=== PATIENT | female | born 2000 | race Caucasian/White ===

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

== ENCOUNTER 2020-05-20 17:22 | Emergency (ER) | payer OTHER ==
[~2020-05-20] VITALS: Ht 160 cm; Wt 62.1 kg
[~2020-05-20 17:22] MED LIST changes: +Norco 5-325 Ta1 EACH PO
[2020-05-20] MEDS ORDERED: Percocet 5-3251 EACH PO (18:49)
== END 2020-05-20 19:13 | disposition home or self-care (01) ==
LOC: ER 17:22
DX: S42.032A Displaced fracture of lateral end of left clavicle, initial encounter for closed fracture (principal); S22.049A Unspecified fracture of fourth thoracic vertebra, initial encounter for closed fracture; V58.6XXA Passenger in pick-up truck or van injured in noncollision transport accident in traffic accident, initial encounter; Y92.410 Unspecified street and highway as the place of occurrence of the external cause
CPT/HCPCS: 71046; 93005; 93010; 96374; 96375; 99283-25; J1170; J2405

== ENCOUNTER 2020-06-16 08:05 | Emergency (ER) | payer OTHER ==
[~2020-06-16] VITALS: Ht 160 cm; Wt 64.4 kg
[~2020-06-16 08:05] MED LIST changes: +Percocet 5-3251 EACH PO
== END 2020-06-16 09:40 | disposition home or self-care (01) ==
LOC: ER 08:05
DX: S47.1XXA Crushing injury of right shoulder and upper arm, initial encounter (principal); G62.9 Polyneuropathy, unspecified; Z87.891 Personal history of nicotine dependence; W23.0XXA Caught, crushed, jammed, or pinched between moving objects, initial encounter
CPT/HCPCS: 29125; 73080; 99283-25

== ENCOUNTER 2020-12-23 15:31 | Emergency (ER) | payer OTHER ==
[~2020-12-23] VITALS: Ht 162.6 cm; Wt 68.0 kg
[2020-12-23] MEDS ORDERED: DEXT30SU PO (15:44)
[2020-12-23] MEDS ORDERED: Suphedrine PE10 MG PO (15:44)
== END 2020-12-23 16:01 | disposition home or self-care (01) ==
LOC: ER 15:31
DX: U07.1 COVID-19 (principal)
CPT/HCPCS: 99284

== ENCOUNTER 2020-12-31 16:04 | Emergency (ER) | payer OTHER ==
[~2020-12-31 16:04] MED LIST changes: +DEXT30SU PO; +Suphedrine PE10 MG PO
== END 2020-12-31 16:25 | disposition home or self-care (01) ==
LOC: ER 16:04
DX: U07.1 COVID-19 (principal)
CPT/HCPCS: 99282

== ENCOUNTER 2021-11-23 00:29 | Emergency (ER) | payer BC ==
[~2021-11-23] VITALS: Ht 160 cm; Wt 63.5 kg
[2021-11-23] MEDS ORDERED: BACITO TOP (04:55)
== END 2021-11-23 05:35 | disposition home or self-care (01) ==
LOC: ER 00:29
DX: S01.511A Laceration without foreign body of lip, initial encounter (principal); S00.81XA Abrasion of other part of head, initial encounter; Y04.0XXA Assault by unarmed brawl or fight, initial encounter; F17.210 Nicotine dependence, cigarettes, uncomplicated
CPT/HCPCS: 70450; 70486; 72125

== ENCOUNTER 2022-04-25 21:37 | Emergency (ER) | payer OTHER, BC ==
[~2022-04-25] VITALS: Ht 157.5 cm; Wt 69.0 kg
[~2022-04-25 21:37] MED LIST changes: +BACITO TOP
[2022-04-26] MEDS ORDERED: HYDR1TAB94 PO (00:16)
== END 2022-04-26 02:33 | disposition home or self-care (01) ==
LOC: ER 21:37
DX: S82.841A Displaced bimalleolar fracture of right lower leg, initial encounter for closed fracture (principal); S00.83XA Contusion of other part of head, initial encounter; S20.219A Contusion of unspecified front wall of thorax, initial encounter; F17.210 Nicotine dependence, cigarettes, uncomplicated; V89.2XXA Person injured in unspecified motor-vehicle accident, traffic, initial encounter; Z88.5 Allergy status to narcotic agent; Z88.8 Allergy status to other drugs, medicaments and biological substances
CPT/HCPCS: 71045; 72070; 73590; 73610; 73630; A9270; J3010

== ENCOUNTER 2022-04-29 10:56 | Emergency (ER) | payer OTHER ==
[~2022-04-29] VITALS: Ht 157.5 cm; Wt 71.7 kg
== END 2022-04-29 13:00 | disposition home or self-care (01) ==
LOC: ER 10:56
DX: S82.841D Displaced bimalleolar fracture of right lower leg, subsequent encounter for closed fracture with routine healing (principal); Z88.8 Allergy status to other drugs, medicaments and biological substances; Z88.5 Allergy status to narcotic agent; Z79.899 Other long term (current) drug therapy; V89.2XXD Person injured in unspecified motor-vehicle accident, traffic, subsequent encounter
CPT/HCPCS: 29515; 99282-25

== ENCOUNTER 2022-08-28 22:16 | Emergency (ER) | payer OTHER ==
[~2022-08-28] VITALS: Ht 157.5 cm; Wt 54.4 kg
[2022-08-28 22:40] LABS: BASOPHILS ABSOLUTE AUTO 0.03 K/mm3 (0.00-0.23); BASOPHILS PERCENT AUTO 0 % (0-2); EOSINOPHILS ABSOLUTE AUTO 0.06 K/mm3 (0.00-0.68); EOSINOPHILS PERCENT AUTO 1 % (0-6); Hematocrit 37.9 % (33.0-51.0); Hemoglobin 13.2 g/dL (11.5-16.0); IMMATURE GRAN ABSOLUTE AUTO 0.03 K/mm3 (0.00-0.10); IMMATURE GRAN PERCENT AUTO 0 % (0-1); LYMPHOCYTES ABSOLUTE AUTO 1.96 K/mm3 (0.84-5.20); LYMPHOCYTES PERCENT AUTO 21 % (21-46); MONOCYTES ABSOLUTE AUTO 0.39 K/mm3 (0.16-1.47); MONOCYTES PERCENT AUTO 4 % (4-13); Mean Corpuscular HGB 31.2 pg (26.0-34.0); Mean Corpuscular HGB Conc 34.8 g/dL (31.5-36.5); Mean Corpuscular Volume 90 fL (80-100); Mean Platelet Volume 8.7 fL (9.1-12.4); NEUTROPHILS PERCENT AUTO 74 % (41-73); Platelet Count 532 K/mm3 (150-400); RDW Coefficient Variation 11.7 % (11.7-14.2); RDW Standard Deviation 37.9 fL (35.1-46.3); Red Blood Cell Count 4.23 M/mm3 (3.80-5.20); White Blood Cell Count 9.57 K/mm3 (4.00-11.30)
[2022-08-28 22:53] LABS: International Normalized Ratio 0.97; Prothrombin Time Results 10.2 Sec (9.7-11.5)
[2022-08-28 23:00] LABS: Alanine Aminotransfer (ALT/SGP 19 U/L (12-78); Albumin/Globulin Ratio 1.1 (0.8-1.8); Alk Phos 107 U/L (50-136); Anion Gap 10 mmol/L (6-16); Aspartate Aminotrans (AST/SGOT 13 U/L (12-37); Beta HCG, Quantitative, Serum <1 mIU/mL (0-3); Bilirubin, Total 0.2 mg/dL (0.1-1.0); Blood Urea Nitrogen 15 mg/dL (8-24); Bun/Creatinine Ratio 23.4 (12.0-20.0); CO2, Blood 24 mmol/L (21-32); Calcium, Blood 8.4 mg/dL (8.5-10.1); Chloride, Blood 112 mmol/L (98-108); Creatinine, Blood 0.64 mg/dL (0.40-1.00); Ethanol (Alcohol), Blood, Med 233 mg/dL; Globulin, Blood 3.5 g/dL (2.2-4.0); Glomerular Filtration Rate 128 (60-); Glucose, Blood 95 mg/dL (70-99); Potassium, Blood 3.5 mmol/L (3.5-5.5); Sodium, Blood 146 mmol/L (136-145); Total Protein, Blood 7.5 g/dL (6.4-8.2)
[2022-08-28 23:02] VITALS: BP 136/90
[2022-08-29] MEDS ORDERED: IBUP800 PO (00:55)
[2022-08-29] MEDS ORDERED: ONDA4ODT MM (00:55)
[2022-08-29] MEDS ORDERED: Robaxin750 MG PO (00:55)
== END 2022-08-29 01:14 | disposition home or self-care (01) ==
LOC: ER 22:16
PROVIDERS: Student in an Organized Health Care Education/Training Program
DX: S06.0XAA Concussion with loss of consciousness status unknown, initial encounter (principal); S01.01XA Laceration without foreign body of scalp, initial encounter; S16.1XXA Strain of muscle, fascia and tendon at neck level, initial encounter; S13.4XXA Sprain of ligaments of cervical spine, initial encounter; S30.1XXA Contusion of abdominal wall, initial encounter; W17.89XA Other fall from one level to another, initial encounter; Z88.8 Allergy status to other drugs, medicaments and biological substances; Z88.5 Allergy status to narcotic agent; F17.290 Nicotine dependence, other tobacco product, uncomplicated
CPT/HCPCS: 12011; 70450; 71260; 72125; 73600; 74177; 80053; 84702; 85025; 85610; 90471; 93005; 93010; 96374-59; 96375-59; 99285-25; A9270; G0480; J1885; J3010; Q9967

== ENCOUNTER 2022-09-08 14:43 | Emergency (ER) | payer OTHER ==
[~2022-09-08] VITALS: Ht 157.5 cm; Wt 67.1 kg
[~2022-09-08 14:43] MED LIST changes: +IBUP800 PO; +ONDA4ODT MM; +Robaxin750 MG PO
[2022-09-08 15:08] VITALS: BP 131/84
== END 2022-09-08 15:29 | disposition home or self-care (01) ==
LOC: ER 14:43
DX: Z48.02 Encounter for removal of sutures (principal)

== ENCOUNTER 2022-12-05 23:41 | Emergency (ER) | payer OTHER ==
[~2022-12-05] VITALS: Ht 160 cm; Wt 74.8 kg
[2022-12-06 02:27] VITALS: BP 123/84
== END 2022-12-06 04:02 | disposition left against medical advice (07) ==
LOC: ER 23:41
DX: R07.81 Pleurodynia (principal); R06.02 Shortness of breath; Z88.5 Allergy status to narcotic agent; F17.290 Nicotine dependence, other tobacco product, uncomplicated; Z79.1 Long term (current) use of non-steroidal anti-inflammatories (NSAID)
CPT/HCPCS: 71046; 84484; 85379; 93005; 93010; 99284-25

== ENCOUNTER 2023-11-06 22:40 | Emergency (ER) | payer OTHER ==
[~2023-11-06] VITALS: Ht 160 cm; Wt 74.8 kg
[2023-11-06 22:50] VITALS: BP 134/89
== END 2023-11-07 00:20 | disposition home or self-care (01) ==
LOC: ER 22:40
DX: S91.311A Laceration without foreign body, right foot, initial encounter (principal); W22.8XXA Striking against or struck by other objects, initial encounter; Z88.8 Allergy status to other drugs, medicaments and biological substances; Z88.5 Allergy status to narcotic agent; F17.290 Nicotine dependence, other tobacco product, uncomplicated
CPT/HCPCS: 12001; 73630; 99283-25

== ENCOUNTER 2024-12-08 21:56 | Emergency (ER) | payer BC, OTHER ==
[~2024-12-08] VITALS: Ht 160 cm; Wt 85.3 kg
[2024-12-08] MEDS ORDERED: Ondansetron HCl 2 MG / ML 2ML Vial IV ONE (22:20)
[2024-12-08 22:37] LABS: BASOPHILS ABSOLUTE AUTO 0.03 K/mm3 (0.00-0.23); BASOPHILS PERCENT AUTO 0 % (0-2); EOSINOPHILS ABSOLUTE AUTO 0.04 K/mm3 (0.00-0.68); EOSINOPHILS PERCENT AUTO 0 % (0-6); Hematocrit 35.9 % (33.0-51.0); Hemoglobin 12.3 g/dL (11.5-16.0); IMMATURE GRAN ABSOLUTE AUTO 0.05 K/mm3 (0.00-0.10); IMMATURE GRAN PERCENT AUTO 0 % (0-1); LYMPHOCYTES ABSOLUTE AUTO 1.50 K/mm3 (0.84-5.20); LYMPHOCYTES PERCENT AUTO 11 % (21-46); MONOCYTES ABSOLUTE AUTO 0.68 K/mm3 (0.16-1.47); MONOCYTES PERCENT AUTO 5 % (4-13); Mean Corpuscular HGB Conc 34.3 g/dL (31.5-36.5); Mean Corpuscular Volume 87 fL (80-100); NEUTROPHILS ABSOLUTE AUTO 11.58 K/mm3 (1.96-9.15); NEUTROPHILS PERCENT AUTO 83 % (41-73); NRBC ABSOLUTE 0.00 K/mm3 (0.00-0.02); NRBC Auto 0.0 /100 WBC (0.0-0.2); Platelet Count 496 K/mm3 (150-400); RDW Coefficient Variation 11.5 % (11.7-14.2); RDW Standard Deviation 37.3 fL (35.1-46.3)
[2024-12-08 22:39] LABS: Source, Urine Clean Catch
[2024-12-08 23:00] LABS: Alanine Aminotransfer (ALT/SGP 20.0 U/L (12-78); Albumin, Blood 3.9 g/dL (3.4-5.0); Albumin/Globulin Ratio 1.1 (0.8-1.8); Anion Gap 8.0 mmol/L (3-11); Aspartate Aminotrans (AST/SGOT 14.0 U/L (12-37); Bilirubin, Total 0.5 mg/dL (0.1-1.0); Blood Urea Nitrogen 12.0 mg/dL (8-24); CO2, Blood 24.0 mmol/L (21-32); Calcium, Blood 8.9 mg/dL (8.5-10.1); Chloride, Blood 107.0 mmol/L (98-108); Creatinine, Blood 0.64 mg/dL (0.40-1.00); Globulin, Blood 3.7 g/dL (2.2-4.0); Glucose, Blood 90.0 mg/dL (70-99); Potassium, Blood 3.9 mmol/L (3.5-5.5); Sodium, Blood 135.0 mmol/L (136-145); Total Protein, Blood 7.6 g/dL (6.4-8.2)
[2024-12-08 23:04] LABS: Bilirubin, Urine Neg (Neg); Glucose Qualitative, Urine Neg (Neg); Ketones, Urine Neg (Neg); Leukocyte Esterase, Urine 3+ (Neg); Protein, Urine Neg (Neg); Specific Gravity, Urine 1.010 (1.003-1.022); Urobilinogen, Urine NORM (Normal)
[2024-12-08 23:24] LABS: Color, Urine Pale Yellow (P-Yellow)
[2024-12-08 23:25] LABS: Red Blood Cells, Urine 0-2 /hpf (0-2); White Blood Cells, Urine 25-50 /hpf (0-5)
[2024-12-08] MEDS ORDERED: CefTRIAXone Sodium 1,000 MG in NS 50 ML IV ONE (23:35)
[2024-12-09] MEDS ORDERED: CEFP200 PO (00:03)
[2024-12-09 00:07] VITALS: BP 113/78
== END 2024-12-09 00:11 | disposition home or self-care (01) ==
LOC: ER 21:56
PROVIDERS: Student in an Organized Health Care Education/Training Program
DX: N39.0 Urinary tract infection, site not specified (principal); N83.201 Unspecified ovarian cyst, right side; R11.2 Nausea with vomiting, unspecified; Z59.89 Other problems related to housing and economic circumstances
CPT/HCPCS: 74177; 80053; 81001; 83605; 83690; 84703; 85025; 87077; 87086; 87186; 96374-59; 96375; 99284-25; J0696; J2405; Q9967